=== PATIENT | female | born 1955 | race Caucasian/White ===

== ENCOUNTER 2019-03-27 08:02 | Inpatient (IN) | payer MEDICARE, MEDICAID ==
[~2019-03-27] VITALS: Ht 170.2 cm; Wt 68.9 kg
--- NOTE | 2019-03-27 08:29 | NUR ---
patient BIBRA from [facility], on cool aerosol @ 2lpm, in no distress, breathing evenly and unlabored. kept comfortable, will continue to monitor accordingly.
[2019-03-27] MEDS ORDERED: IV NS 0.9% 1,000 ML BAG IV ONE (08:30)
--- NOTE | 2019-03-27 08:31 | NUR ---
Blood drawned and sent to lab.
[2019-03-27 08:34] LABS: BASOPHILS % (AUTO) 0.5 % (0.0-2.0); EOSINOPHILS % (AUTO) 0.9 % (0.0-6.0); HEMATOCRIT 35 % (33-45); HEMOGLOBIN 11.3 g/dL (11.5-14.8); LYMPHOCYTES # (AUTO) 0.6 /CMM (0.8-4.8); LYMPHOCYTES % (AUTO) 9.9 % (20.0-44.0); MEAN CORPUSCULAR HGB CONC 32 g/dl (31.0-36.0); MEAN CORPUSCULAR VOLUME 89 fL (82-100); MONOCYTES # (AUTO) 0.6 /CMM (0.1-1.30); MONOCYTES % (AUTO) 8.7 % (2.0-12.0); NEUTROPHILS # (AUTO) 5.2 /CMM (1.8-8.9); PLATELET COUNT (AUTO) 248 /CMM (150-450); RED BLOOD CELL COUNT(AUTO) 3.98 MIL/uL (4.0-5.2); WHITE BLOOD COUNT (AUTO) 6.5 K/uL (4.3-11.0)
[2019-03-27 08:38] LABS: CALCIUM, SERUM 9.7 mg/dL (8.5-10.1); CHLORIDE 100 mmol/L (98-107); CREATININE 0.5 mg/dL (0.6-1.3); GLUCOSE 114 mg/dL (74-106); SODIUM SERUM 144 mmol/L (136-145); UREA NITROGEN, BLOOD 16 mg/dL (7-18)
[2019-03-27 08:42] LABS: CARBON DIOXIDE 49 mmol/L (21-32)
[2019-03-27 08:44] LABS: ALANINE AMINOTRANSFERASE 18 U/L (12-78); ALKALINE PHOSPHATASE 109 U/L (46-116); ASPARTATE AMINOTRANSFERASE 9 U/L (15-37); BILIRUBIN,DIRECT 0.1 mg/dL (0.0-0.2); BILIRUBIN,TOTAL 0.2 mg/dL (0.2-1.0); TOTAL PROTEIN, SERUM 6.6 g/dL (6.4-8.2)
--- NOTE | 2019-03-27 09:02 | NUR ---
wheeled patient to ct scan
--- NOTE | 2019-03-27 09:37 | NUR ---
RT at bedside for ABG
--- NOTE | 2019-03-27 09:37 | NUR ---
urine collected and sent to lab
[2019-03-27 09:41] LABS: ABG BASE EXCESS 13.8 mmol/L; ABG OXYGEN SATURATION 96.1 % (92.0-98.5); ABG PCO2 79.4 mmHg (35.0-45.0); ABG PH 7.346 (7.350-7.450); ABG PO2 88.3 mmHg (75.0-100.0); AaDO2 17.7 mmHg; COHb 0.3 % (0.5-1.5); MetHb 0.5 % (0.0-1.5); O2Hb 95.3 % (94.0-97.0); SITE, ABG Left Radial; VENT MODE, BG AEROSOL 28%
[2019-03-27 09:43] LABS: BILIRUBIN,URINE Negative (NEGATIVE); BLOOD, URINE Negative Ery/uL (NEGATIVE); COLOR,URINE Yellow (YELLOW); KETONES,URINE Negative (NEGATIVE); LEUKOCYTE ESTERASE ,URINE Small (NEGATIVE); NITRITE, URINE Negative (NEGATIVE); PH,URINE 7.5 (5.0-8.0); PROTEIN,URINE Negative (NEGATIVE); UGLUCOSE Negative (NEGATIVE); UROBILINOGEN,URINE 0.2 EU/dL (0.2)
[2019-03-27 09:46] LABS: APPEARANCE,URINE SLIGHTLY CLOUDY (CLEAR)
[2019-03-27 09:47] LABS: BACTERIA,URINE Many /HPF (None Seen); URINE AMORPHOUS PHOSPHATES Few /HPF (None Seen)
[2019-03-27 09:48] LABS: SQUAMOUS EPITHELIAL CELL,UR Moderate /HPF (None Seen)
--- NOTE | 2019-03-27 09:51 | NUR ---
IV fluids stopped per MD order.
[2019-03-27] MEDS ORDERED: FURO-145 GT (09:56)
[2019-03-27] MEDS ORDERED: LEVA0.6320 IH (09:56)
[2019-03-27] MEDS ORDERED: ONDA4TAB11 GT (09:56)
[2019-03-27] MEDS ORDERED: ARIP30TA21 GT (09:56)
[2019-03-27] MEDS ORDERED: CARV3.122 GT (09:56)
[2019-03-27] MEDS ORDERED: LACT-209 (09:56)
[2019-03-27] MEDS ORDERED: APIX5TAB GT (09:56)
[2019-03-27] MEDS ORDERED: IPRA0.2S9 IH ×2 (09:56)
[2019-03-27] MEDS ORDERED: HYDR-4384 GT ×2 (09:56)
[2019-03-27] MEDS ORDERED: AMIN887L GT (09:56)
[2019-03-27] MEDS ORDERED: ATOR10TA GT (09:56)
[2019-03-27] MEDS ORDERED: ACET325T53 GT (09:56)
[2019-03-27] MEDS ORDERED: ACET325T53 PO (09:56)
[2019-03-27] MEDS ORDERED: NUTR1PAC14 GT (09:56)
[2019-03-27] MEDS ORDERED: NA P133E RC (09:56)
[2019-03-27] MEDS ORDERED: SENN-261 GT (09:56)
[2019-03-27] MEDS ORDERED: GABA250S2 GT (09:56)
[2019-03-27] MEDS ORDERED: DULO20CA GT (09:56)
[2019-03-27] MEDS ORDERED: CRAN3875 GT (09:56)
[2019-03-27] MEDS ORDERED: ASCO500C16 GT (09:56)
[2019-03-27] MEDS ORDERED: CHLO473M2 MM (09:56)
[2019-03-27] MEDS ORDERED: LANS30CA56 GT (09:56)
[2019-03-27] MEDS ORDERED: CRAN425C6 GT (09:56)
[2019-03-27] MEDS ORDERED: POLY17PO4 GT (09:56)
[2019-03-27] MEDS ORDERED: DOCU-141 GT (09:56)
[2019-03-27] MEDS ORDERED: MULT1TAB73 GT (09:56)
--- NOTE | 2019-03-27 10:37 | NUR ---
Report given to Debby mathur for KAILA.
--- NOTE | 2019-03-27 11:03 | NUR ---
wheeled patient via gurney accompanied by RN and emt in no distress. RN at bedside to assume care.
[2019-03-27] MEDS ORDERED: MAG HYDROX/AL HYDROX/SIMETH 30 ML UDC PO PRN (11:30)
[2019-03-27] MEDS ORDERED: Z GUARD REMEDY 2 OZ OINT TP PRN (11:30)
[2019-03-27] MEDS ORDERED: MAGNESIUM HYDROXIDE 30 ML UDC PO PRN (11:30)
[2019-03-27] MEDS ORDERED: ACETAMINOPHEN 325 MG TABLET PO PRN (11:30)
[2019-03-27] MEDS ORDERED: HYDROCODONE/APAP 5/325MG 1 EACH TABLET PO PRN (11:30)
[2019-03-27] MEDS ORDERED: ONDANSETRON HCL/PF 4 MG/2 ML VIAL IVP PRN (11:30)
[2019-03-27] MEDS: IV NS 0.9% 1,000 ML IV PRN ×2 (12:19→23:32)
[2019-03-27] MEDS ORDERED: JEVITY 1.2 CAL 1,000 ML BOTTLE GT SCH (12:30)
[2019-03-27] MEDS ORDERED: IPRATROPIUM NEB FS 0.5 MG/2.5 ML AMPUL.NEB NEB PRN (12:30)
[2019-03-27] MEDS ORDERED: ONDANSETRON 4 MG TAB.RAPDIS GT PRN (12:30)
[2019-03-27] MEDS ORDERED: NA PHOS,M-B/NA PHOS,DI-BA 1 EA ENEMA RC PRN (12:30)
[2019-03-27] MEDS ORDERED: POLYETHYLENE GLYCOL 3350 17 GM POWD.PACK GT PRN (12:30)
[2019-03-27] MEDS ORDERED: HYDROCODONE/APAP 5/325MG 1 EACH TABLET GT SCH ×2 (13:00→17:00)
[2019-03-27] MEDS: GABAPENTIN 300 MG CAPSULE GT SCH ×2 (14:02→16:28)
[2019-03-27] MEDS: JEVITY 1.2 CAL 1,000 ML BOTTLE GT SCH (14:35)
[2019-03-27] MEDS: ALBUTEROL HALF STRENGTH 1.25 MG/3 ML VIAL.NEB NEB SCH ×3 (16:06→22:41)
[2019-03-27] MEDS: IPRATROPIUM NEB FS 0.5 MG/2.5 ML AMPUL.NEB IH SCH ×3 (16:06→22:41)
[2019-03-27] MEDS: APIXABAN 5 MG TABLET GT SCH (16:28)
[2019-03-27] MEDS: CHLORHEXIDINE GLUCONATE 15 ML UDC MM SCH (16:29)
[2019-03-27] MEDS: DOCUSATE SODIUM 100 MG CAPSULE PO SCH (16:30)
[2019-03-27] MEDS: HYDROCODONE/APAP 5/325MG 1 EACH TABLET GT PRN (16:32)
[2019-03-27 16:53] LABS: ABG BASE EXCESS 18.5 mmol/L; ABG OXYGEN SATURATION 93.4 % (92.0-98.5); ABG PCO2 72.3 mmHg (35.0-45.0); ABG PH 7.423 (7.350-7.450); ABG PO2 67.1 mmHg (75.0-100.0); AaDO2 47.2 mmHg; COHb 0.3 % (0.5-1.5); MetHb 0.4 % (0.0-1.5); O2Hb 92.7 % (94.0-97.0); SITE, ABG Left Radial; VENT MODE, BG CA 28%
--- NOTE | 2019-03-27 16:55 | NUR ---
WEB DEVELOPER PROGRAMMER NOTES RECEIVED A CALL FROM RT REGARDING ABG ABNORMAL RESULTS. RESULT SEND TO Christelle ABDUL DR. AWARE OF RESULT
[2019-03-27] MEDS ORDERED: ARGININE/GLUTAMINE/CALCIUM BMB 1 EACH POWD.PACK GT SCH (17:00)
[2019-03-27 20:00] VITALS: BP 146/66
--- NOTE | 2019-03-27 20:16 | NUR ---
RESIDENTIAL ELECTRICIAN NOTED PATIENT IN BED A/OX 4 NON VERBAL, MOUTHS WORDS. ON JEVITY 1.2 30 ML/HR. ON COOL AEROSOL. NO SOB OR DISCOMFORT NOTED AT THIS TIME. PATIENT HAS CHRONIC BACH PAIN AND COMPLAINED OF BACK PAIN AND NORCO GIVEN TO PATIENT. SHE STATED THAT IT WORKS FOR HER AND PAIN IS AT TOLERABLE LEVEL. ALL NEEDS ATTENDED, MEDICATIONS ADMINISTRATED. CALL LIGHT WITHIN REACH, BED AT THE LOWEST POSITION LOCKED. ENDORSED TO JOURNEYMAN GLAZIER NURSE FOR KAILA.
--- NOTE | 2019-03-27 21:40 | NUR ---
TELE1/RN ON INITIAL ROUNDS AT 1930, PATIENT WAS AWAKE, ALERT, NOT APHASIC SECONDARY TO TRACH, COMFORTABLE, NO SIGNS OF PAIN/DISTRESS NOTED, CALL LIGHT IN REACH. FALL RISK, FALL PRECAUTIONS IN PLACE, WILL MONITOR.
[2019-03-27] MEDS: CARVEDILOL 3.125 MG TABLET GT SCH (23:30)
[2019-03-27] MEDS: SENNOSIDES 8.6 MG TABLET GT SCH (23:30)
[2019-03-28] VITALS: BP 90/56
--- NOTE | 2019-03-28 01:38 | NUR ---
TELE1/RN PATIENT IS SLEEPING AT THIS TIME, APPEAR COMFORTABLE, NO SIGNS OF DISTRESS NOTED, HOB ELEVATED, CALL LIGHT IN REACH. WILL CONTINUE TO MONITOR.
[2019-03-28] MEDS: ALBUTEROL HALF STRENGTH 1.25 MG/3 ML VIAL.NEB NEB SCH ×5 (02:54→21:06)
[2019-03-28] MEDS: IPRATROPIUM NEB FS 0.5 MG/2.5 ML AMPUL.NEB IH SCH ×5 (02:54→21:06)
[2019-03-28 04:00] VITALS: BP 125/72
--- NOTE | 2019-03-28 06:11 | NUR ---
TELE1/RN PATIENT STILL SLEEPING AT THIS TIME, APPEAR COMFORTABLE, NO SIGNS OF DISTRESS NOTED, CALL LIGHT IN REACH. ALL NEEDS ATTENDED AT THIS TIME, WILL CONTINUE TO MONITOR.
[2019-03-28 06:19] LABS: BASOPHILS % (AUTO) 0.3 % (0.0-2.0); EOSINOPHILS % (AUTO) 2.1 % (0.0-6.0); HEMATOCRIT 31 % (33-45); LYMPHOCYTES # (AUTO) 0.8 /CMM (0.8-4.8); LYMPHOCYTES % (AUTO) 14.8 % (20.0-44.0); MEAN CORPUSCULAR HGB CONC 32 g/dl (31.0-36.0); MEAN CORPUSCULAR VOLUME 88 fL (82-100); MONOCYTES # (AUTO) 0.7 /CMM (0.1-1.30); MONOCYTES % (AUTO) 12.9 % (2.0-12.0); NEUTROPHILS # (AUTO) 3.9 /CMM (1.8-8.9); NEUTROPHILS % (AUTO) 69.9 % (43.0-81.0); PLATELET COUNT (AUTO) 238 /CMM (150-450); RED BLOOD CELL COUNT(AUTO) 3.56 MIL/uL (4.0-5.2); WHITE BLOOD COUNT (AUTO) 5.6 K/uL (4.3-11.0)
[2019-03-28 06:34] LABS: CALCIUM, SERUM 9.1 mg/dL (8.5-10.1); CREATININE 0.5 mg/dL (0.6-1.3); PHOSPHORUS 4.2 mg/dL (2.5-4.9); POTASSIUM 3.5 mmol/L (3.5-5.1)
--- NOTE | 2019-03-28 07:00 | NUR ---
RN AM SHIFT NOTE PATIENT AWAKE AND ALERT X3-4. MOUTHS WORDS . COMPLAING OF LOWER BACK PAIN RELEIVED BY CURRENT MEDICATION REGIMEN. GTUBE TO BE ON FOR 17 HOURS DAILY PER MD ORDER. NO RESIDUAL NO ABDOMINAL DISTENTIOIN NOTED. C02 ELEVATED MD AWARE.. CALL LIGHT WITHIN REACH BED IN LOW POSITION. ALL NEEDS MET AT THIS TIME.
[2019-03-28 08:00] VITALS: BP 123/60
[2019-03-28] MEDS: CARVEDILOL 3.125 MG TABLET GT SCH ×2 (08:34→21:15)
[2019-03-28] MEDS: APIXABAN 5 MG TABLET GT SCH ×2 (08:34→16:21)
[2019-03-28] MEDS: GABAPENTIN 300 MG CAPSULE GT SCH ×3 (08:35→16:15)
[2019-03-28] MEDS: SENNOSIDES 8.6 MG TABLET GT SCH ×2 (08:35→21:15)
[2019-03-28] MEDS: ATORVASTATIN 10 MG TABLET GT SCH (08:35)
[2019-03-28] MEDS: DOCUSATE SODIUM 100 MG CAPSULE PO SCH ×2 (08:35→16:15)
[2019-03-28] MEDS: DULOXETINE HCL 20 MG CAPSULE.DR GT SCH (08:35)
[2019-03-28] MEDS: MULTIVITAMINS,THERAGRAN 1 UDTAB TABLET GT SCH (08:35)
[2019-03-28] MEDS: ARIPIPRAZOLE 5 MG TABLET GT SCH (08:35)
[2019-03-28] MEDS: ASCORBIC ACID 500 MG TABLET GT SCH (08:37)
[2019-03-28] MEDS: PANTOPRAZOLE 40 MG/PACK PACK GT SCH (08:37)
[2019-03-28] MEDS: CHLORHEXIDINE GLUCONATE 15 ML UDC MM SCH ×2 (08:37→16:15)
[2019-03-28] MEDS: PROSOURCE / PROSTAT (PYXIS) 30 ML UDC GT SCH (08:38)
[2019-03-28] MEDS: HYDROCODONE/APAP 5/325MG 1 EACH TABLET GT PRN ×3 (08:50→18:39)
[2019-03-28] MEDS ORDERED: Medication Not On Formulary EA (Cran/Vitc/Mannose/Inulin/Brom (Uti-Stat Liquid) 30 MG) GT SCH (09:00)
[2019-03-28] MEDS ORDERED: Medication Not On Formulary EA (Cranberry Extract (Cranberry) 425 MG) GT SCH (09:00)
--- NOTE | 2019-03-28 10:51 | NUR ---
WOUND CARE CONSULT: PT PRESENTS WITH LESION TO RT LOWER LEG AND WOUND WITH SOME PURULENT DRAINAGE, PRESENT ON ADMISSION. RECOMMEND DPM CONSULT. DR LLANOS NOTIFIED OF DPM CONSULT REQUEST. RECOMMENDATIONS MADE FOR SKIN PROTECTION AND WOUND CARE TIL SEEN BY DPM. DISCUSSED WITH NURSING STAFF. PT TO BE PLACED ON JOVAN ISOFLEX LOW AIRLOSS BED. PT IS INCONTINENT. WILL SEE PRN. DICKEY IN AGREEMENT WITH PLAN OF CARE. CURRENT ADAM SCORE IS 10. Addendum: 03/28/19 at 1053 by OLU GOTTLIEB WNDNU Amended: Links added.
--- NOTE | 2019-03-28 12:00 | NUR ---
RN NOTE DENTURES PATIETNS FAMILY AT BEDSIDE. PATIENT HAS UPPER AND LOWER DENTURES CHECKED IN BY RN AND PLACED AT BEDSIDE. BELONGINGS LIST FILLED OUT AND COPY GIVEN TO FAMILY. PAIN MEDICATION TO BE GIVEN PER MD ORDER. ALL NEEDS MET AT THIS TIME. LEVEL OF CONCIOUSESS IMPROVED , ALERT X3-4.
[2019-03-28] MEDS: IV D5W 1,000 ML IV PRN (15:46)
[2019-03-28 16:00] VITALS: BP 109/50
--- NOTE | 2019-03-28 17:57 | NUR ---
RN CLOSING NOTE PATIENT ALERT AN ORIENTED 2-3. MOUTHS WORDS. NPO GTUBE AT THIS TIME. DIAPER, WOUND CONSULT PLACED PODIATRY TO SEE PATIETN FOR RT LEG PER WOUND NURSE. MONITOR SEDATION WITH MEDICATION FOR PAIN PER MD ORDER. PATIENT IS ALERT AND ORIENTED WITH EPISODES OF DROWSINESS, EASILY AWAKENED. ALL NEEDS MET AT THIS TIME. BED IN LOW POSITON, CALL LIGHT WITHIN REACH.
[2019-03-29] MEDS: IPRATROPIUM NEB FS 0.5 MG/2.5 ML AMPUL.NEB IH SCH ×7 (00:24→23:57)
[2019-03-29] MEDS: ALBUTEROL HALF STRENGTH 1.25 MG/3 ML VIAL.NEB NEB SCH ×7 (00:24→23:56)
[2019-03-29] MEDS: HYDROCODONE/APAP 5/325MG 1 EACH TABLET GT PRN ×4 (03:05→22:41)
[2019-03-29] MEDS: IV D5W 1,000 ML IV PRN ×2 (03:49→17:52)
--- NOTE | 2019-03-29 07:15 | NUR ---
RN INITIAL NOTE RECEIVED REPORT AT BEDSIDE. PATIENT AWAKE AND ALERT. MOUTHS WORDS. ON TP, SATING WELL AT 100%. ON GTF, JEVITY AT 40 ML/HR. HAS A RIGHT AC #20 D5W AT 100 ML/HR. BED LOCKED AND IN LOWEST POSITION. WILL CONTINUE TO MONITOR
[2019-03-29 08:00] VITALS: BP 141/74
--- NOTE | 2019-03-29 08:07 | NUR ---
RN CLOSING NOTE PATIENT IN BED WITH NO SIGN OF ANY DISTRESS. PATIENT TOLERATING 8L OF 02 ON TPIECE WITH NO SOB. TOLERATING GTUBE FEEDINGS OF JEVITY AT 40CC/HR WITH NO RESIDUAL. ENDORSED PATIENT TO MORNING SHIFT NURSE FOR KAILA.
[2019-03-29] MEDS: DULOXETINE HCL 20 MG CAPSULE.DR GT SCH (08:50)
[2019-03-29] MEDS: CHLORHEXIDINE GLUCONATE 15 ML UDC MM SCH ×2 (08:50→16:36)
[2019-03-29] MEDS: ATORVASTATIN 10 MG TABLET GT SCH (08:50)
[2019-03-29] MEDS: GABAPENTIN 300 MG CAPSULE GT SCH ×3 (08:51→16:37)
[2019-03-29] MEDS: CARVEDILOL 3.125 MG TABLET GT SCH ×2 (08:52→21:49)
[2019-03-29] MEDS: APIXABAN 5 MG TABLET GT SCH ×2 (08:53→16:41)
[2019-03-29] MEDS: SENNOSIDES 8.6 MG TABLET GT SCH ×2 (08:53→21:48)
[2019-03-29] MEDS: ARIPIPRAZOLE 5 MG TABLET GT SCH (08:53)
[2019-03-29] MEDS: ASCORBIC ACID 500 MG TABLET GT SCH (08:54)
[2019-03-29] MEDS: MULTIVITAMINS,THERAGRAN 1 UDTAB TABLET GT SCH (08:54)
[2019-03-29] MEDS: PANTOPRAZOLE 40 MG/PACK PACK GT SCH (08:54)
[2019-03-29] MEDS: PROSOURCE / PROSTAT (PYXIS) 30 ML UDC GT SCH (08:55)
[2019-03-29] MEDS: JEVITY 1.2 CAL 1,000 ML BOTTLE GT SCH (08:55)
[2019-03-29] MEDS: DOCUSATE SODIUM 100 MG CAPSULE PO SCH ×2 (08:55→17:00)
[2019-03-29 09:25] LABS: CALCIUM, SERUM 8.9 mg/dL (8.5-10.1); CREATININE 0.5 mg/dL (0.6-1.3); MAGNESIUM 1.8 mg/dL (1.8-2.4); PHOSPHORUS 4.2 mg/dL (2.5-4.9); POTASSIUM 3.4 mmol/L (3.5-5.1)
[2019-03-29 09:36] LABS: BASOPHILS % (AUTO) 0.4 % (0.0-2.0); EOSINOPHILS % (AUTO) 1.5 % (0.0-6.0); HEMATOCRIT 34 % (33-45); HEMOGLOBIN 10.8 g/dL (11.5-14.8); LYMPHOCYTES # (AUTO) 0.6 /CMM (0.8-4.8); LYMPHOCYTES % (AUTO) 11.7 % (20.0-44.0); MEAN CORPUSCULAR HGB CONC 32 g/dl (31.0-36.0); MEAN CORPUSCULAR VOLUME 88 fL (82-100); MONOCYTES # (AUTO) 0.7 /CMM (0.1-1.30); MONOCYTES % (AUTO) 13.1 % (2.0-12.0); NEUTROPHILS % (AUTO) 73.3 % (43.0-81.0); PLATELET COUNT (AUTO) 251 /CMM (150-450); RED BLOOD CELL COUNT(AUTO) 3.82 MIL/uL (4.0-5.2); WHITE BLOOD COUNT (AUTO) 5.5 K/uL (4.3-11.0)
[2019-03-29] MEDS ORDERED: JEVITY 1.2 CAL 1,000 ML BOTTLE GT PRN (10:00)
[2019-03-29 12:00] VITALS: BP 128/74
--- NOTE | 2019-03-29 13:00 | NUR ---
RN NOTE PATIENT HAS BEEN HAVING LIQUID STOOL. COLLECTED AND SENT TO LAB TO CHECK FOR CDIFF. MADE AWARE
[2019-03-29 16:00] VITALS: BP 120/72
--- NOTE | 2019-03-29 16:00 | NUR ---
RN NOTE LAB CALLED, STOOL SAMPLE WAS NOT ENOUGH TO CHECK FOR CDIFF. PATIENT ON ISOLATION FOR PRECAUTIONS, WILL COLLECT ANOTHER SAMPLE
--- NOTE | 2019-03-29 19:05 | NUR ---
RN CLOSING NOTE PATIENT IN BED, AWAKE AND ALERT. WOUND CARE ORDERED. NO COMPLAINS OF ANY PAIN NOR SOB. ON 8L COOL AEROSOL TPIECE. ALL MEDS GIVEN. ALL NEEDS MET. REPOSITIONED PER PROTOCOL. CALL LIGHT WITHIN REACH. WILL ENDORSE TO NOC SHIFT FOR KAILA
--- NOTE | 2019-03-29 19:37 | NUR ---
RN OPENING NOTES RECEIVED PATIENT FROM NITHYA GOMES. PATIENT AWAKE IN BED. A/O X 4. PATIENT ABLE TO MOUTH WORDS. PATIENT ABLE TO EXPLAIN NEEDS VIA PEN AND PAPER. ON TP, TOLERATING WELL. NO SIGNS OF RESPIRATORY DISTRESS, NO SHORTNESS OF BREATH NOTED. TELE READING SHOWING SR HR 75. NO COMPLAINTS OF PAIN OR DISCOMFORT AT THIS TIME. IV SITE RAC #20 INTACT, PATENT, NO SIGNS OF INFECTION/INFILTRATION. SAFETY PRECAUTIONS IMPLEMENTED; CALL LIGHT WITHIN REACH, BED LOW, BED LOCKED, BILATERAL UPPER SIDE RAILS UP. WILL CONTINUE TO MONITOR.
[2019-03-29 20:00] VITALS: BP 116/68
[2019-03-30] VITALS: BP 121/71
[2019-03-30] MEDS: IPRATROPIUM NEB FS 0.5 MG/2.5 ML AMPUL.NEB IH SCH ×5 (03:41→19:49)
[2019-03-30] MEDS: ALBUTEROL HALF STRENGTH 1.25 MG/3 ML VIAL.NEB NEB SCH ×5 (03:41→19:54)
[2019-03-30 04:00] VITALS: BP 127/65
[2019-03-30] MEDS: IV D5W 1,000 ML IV PRN (04:04)
[2019-03-30] MEDS: HYDROCODONE/APAP 5/325MG 1 EACH TABLET GT PRN ×4 (04:44→21:19)
--- NOTE | 2019-03-30 06:16 | NUR ---
RN CLOSING NOTES PATIENT IS CURRENTLY ASLEEP, EASILY AWAKENED. ON TPIECE 8L COOL AEROSOL, TOLERATING WELL. NO SIGNS OF RESPIRATORY DISTRESS, NO SHORTNESS OF BREATH NOTED, RESPIRATIONS EVEN AND UNLABORED. TELE SR HR 72. NO SIGNS OF FACIAL GRIMACING INDICATING PAIN OR DISCOMFORT AT THIS TIME. IV SITE REMAINS IN PLACE, INTACT AND PATENT, NO SIGNS OF INFECTION/INFILTRATION, FLUSHED. PATIENT KEPT CLEAN, DRY AND COMFORTABLE. ALL NEEDS MET ON SHIFT. PATIENT REPOSITIONED EVERY 2 HOURS AND NEEDED. ALL DUE MEDS GIVEN ORDERED WITH NO ADVERSE EFFECTS. ABLE TO COLLECT ONLY ONE SPECIMEN OF STOOL FOR LAB TO EXAMINE. SAFETY PRECAUTIONS IMPLEMENTED; CALL LIGHT WITHIN REACH, BED LOW, BED LOCKED, BILATERAL UPPER SIDE RAILS UP. WILL ENDORSE TO DAYSHIFT NURSE FOR CONTINUITY OF CARE.
--- NOTE | 2019-03-30 07:30 | NUR ---
RN OPENING NOTES RECEIVED PATIENT IN BED RESTING. A/O X 4. PATIENT ABLE TO MOUTH WORDS. PATIENT ABLE TO EXPLAIN NEEDS VIA PEN AND PAPER. ON COOL AEROSOL TP, TOLERATING WELL. NO SIGNS OF RESPIRATORY DISTRESS, NO SHORTNESS OF BREATH NOTED. TELE READING SHOWING SR HR 69. NO COMPLAINTS OF PAIN OR DISCOMFORT AT THIS TIME. IV ACCESS INTACT AND PATENT, NO SIGNS OF INFECTION/INFILTRATION. SAFETY PRECAUTIONS IMPLEMENTED; CALL LIGHT WITHIN REACH, BED LOW, BED LOCKED, BILATERAL UPPER SIDE RAILS UP. WILL CONTINUE TO MONITOR.
[2019-03-30 07:53] LABS: BASOPHILS % (AUTO) 0.3 % (0.0-2.0); HEMATOCRIT 34 % (33-45); HEMOGLOBIN 11.3 g/dL (11.5-14.8); LYMPHOCYTES # (AUTO) 0.7 /CMM (0.8-4.8); LYMPHOCYTES % (AUTO) 11.2 % (20.0-44.0); MEAN CORPUSCULAR HGB CONC 33 g/dl (31.0-36.0); MEAN CORPUSCULAR VOLUME 87 fL (82-100); MONOCYTES # (AUTO) 0.8 /CMM (0.1-1.30); MONOCYTES % (AUTO) 12.3 % (2.0-12.0); NEUTROPHILS # (AUTO) 4.5 /CMM (1.8-8.9); NEUTROPHILS % (AUTO) 74.2 % (43.0-81.0); PLATELET COUNT (AUTO) 234 /CMM (150-450); RED BLOOD CELL COUNT(AUTO) 3.94 MIL/uL (4.0-5.2); WHITE BLOOD COUNT (AUTO) 6.1 K/uL (4.3-11.0)
[2019-03-30 08:00] VITALS: BP 147/67
[2019-03-30 08:06] LABS: CALCIUM, SERUM 8.9 mg/dL (8.5-10.1); CREATININE 0.5 mg/dL (0.6-1.3); MAGNESIUM 1.9 mg/dL (1.8-2.4); PHOSPHORUS 4.7 mg/dL (2.5-4.9); POTASSIUM 3.6 mmol/L (3.5-5.1)
[2019-03-30] MEDS: CARVEDILOL 3.125 MG TABLET GT SCH (08:21)
[2019-03-30] MEDS: ASCORBIC ACID 500 MG TABLET GT SCH (08:21)
[2019-03-30] MEDS: ATORVASTATIN 10 MG TABLET GT SCH (08:21)
[2019-03-30] MEDS: MULTIVITAMINS,THERAGRAN 1 UDTAB TABLET GT SCH (08:22)
[2019-03-30] MEDS: DULOXETINE HCL 20 MG CAPSULE.DR GT SCH (08:22)
[2019-03-30] MEDS: GABAPENTIN 300 MG CAPSULE GT SCH ×3 (08:22→16:25)
[2019-03-30] MEDS: DOCUSATE SODIUM 100 MG CAPSULE PO SCH ×2 (08:22→16:25)
[2019-03-30] MEDS: APIXABAN 5 MG TABLET GT SCH ×2 (08:23→16:26)
[2019-03-30] MEDS: SENNOSIDES 8.6 MG TABLET GT SCH (08:24)
[2019-03-30] MEDS: PANTOPRAZOLE 40 MG/PACK PACK GT SCH (08:24)
[2019-03-30] MEDS: CHLORHEXIDINE GLUCONATE 15 ML UDC MM SCH ×2 (08:25→16:26)
[2019-03-30] MEDS: PROSOURCE / PROSTAT (PYXIS) 30 ML UDC GT SCH (08:26)
[2019-03-30 12:00] VITALS: BP 118/55
[2019-03-30] MEDS ORDERED: MERO500V21 IV (12:52)
[2019-03-30] MEDS ORDERED: MEROPENEM 500 MG in IV NS 0.9% 50 ML IV ONE (13:30)
[2019-03-30] MEDS: ARIPIPRAZOLE 5 MG TABLET GT SCH (13:39)
[2019-03-30 16:00] VITALS: BP 108/55
--- NOTE | 2019-03-30 19:02 | NUR ---
rn notes patient for discharge. called Helio BARRIGA from [facility] for report.
--- NOTE | 2019-03-30 19:30 | NUR ---
GROWTH MEDIA MIXER MUSHROOM OPENING NOTE RECEIVED PATIENT A/O X4 PATIENT IN NO SIGN OF ANY DISTRESS. ON A TIPIECE LMLEY #6 WITH FI02 AT 30%. NO SIGN OF SOB. IV ACCESS WAS REMOVED FROM AM RN. PATIENT PLANNED FOR DISCHARGE TONIGHT. GTUBE IS INTACT PATENT AND NO LEAKAGE. PATIENT ON SINUS RHYTHM. ALL SAFETY PRECAUTIONS APPLIED WILL CONTINUE TO MONITOR PATIENT.
--- NOTE | 2019-03-30 19:30 | NUR ---
RN CLOSING NOTES PATIENT IN STABLE CONDITION. ALL NEED ATTENDED AND PROVIDED. ALL DUE MEDS GIVEN ORDERED. TURNED AND REPOSITIONED PATIENT EVERY 2HRS NEEDED. WOUND CARE RENDERED. KEPT PATIENT SAFE AND COMFORTABLE. BED IN LOW/LOCKED POSITION, SIDERAILS UPX2, CALL LIGHT IN REACH. ENDORSED TO NIGHT RN FOR KAILA
[2019-03-30 20:00] VITALS: BP 117/51
[2019-03-30] MEDS ORDERED: MEROPENEM 500 MG in IV NS 0.9% 100 ML IV SCH (21:00)
--- NOTE | 2019-03-30 22:33 | NUR ---
RN NOTE PATIENT WAS PICKED UP BY AMBULANCE WITH RT, PATIENT IN NO SIGN OF DISTRESS. TELE BOX WAS REMOVED. NORCO WAS GIVEN PRIOR TO D/C. GAVE REPORT TO EMS. AND REPORT TO LUCIO FROM [facility]
== END 2019-03-30 21:00 | DRG 189 ==
LOC: ER 08:06 → TELE1 10:32
PROVIDERS: ADMIT Internal Medicine; ATTEND Internal Medicine
DX: J96.22 Acute and chronic respiratory failure with hypercapnia (principal); G93.41 Metabolic encephalopathy; E43 Unspecified severe protein-calorie malnutrition; E87.2 Acidosis; I69.954 Hemiplegia and hemiparesis following unspecified cerebrovascular disease affecting left non-dominant side; N39.0 Urinary tract infection, site not specified; E87.0 Hyperosmolality and hypernatremia; I87.311 Chronic venous hypertension (idiopathic) with ulcer of right lower extremity; L97.819 Non-pressure chronic ulcer of other part of right lower leg with unspecified severity; R13.10 Dysphagia, unspecified; Z93.1 Gastrostomy status; F32.9 Major depressive disorder, single episode, unspecified; E78.5 Hyperlipidemia, unspecified; I48.0 Paroxysmal atrial fibrillation; G62.9 Polyneuropathy, unspecified; Z68.23 Body mass index [BMI] 23.0-23.9, adult; Z93.0 Tracheostomy status; Z79.01 Long term (current) use of anticoagulants; E86.0 Dehydration; R55 Syncope and collapse; E86.1 Hypovolemia; Z74.01 Bed confinement status; M62.562 Muscle wasting and atrophy, not elsewhere classified, left lower leg; M62.561 Muscle wasting and atrophy, not elsewhere classified, right lower leg; Z87.891 Personal history of nicotine dependence; B96.1 Klebsiella pneumoniae [K. pneumoniae] as the cause of diseases classified elsewhere; D64.9 Anemia, unspecified
CPT/HCPCS: 31720; 36415; 36600; 70450-TC; 71045-TC; 80048-TC; 80076-TC; 81000-TC; 82803-TC; 83605-TC; 83735-TC; 84100-TC; 84484-TC; 85025-TC; 85730-TC; 87040-TC; 87081-TC; 87086-TC; 87186-TC; 93307-TC; 94640-TC; 94664-TC; 97530-TC; A4216; A4623; G0378; J2185; J7030; J7042; J7070; Q0162